=== PATIENT | female | born 1980 | race Caucasian/White ===

== ENCOUNTER 2018-12-01 17:53 | Emergency (ER) | payer OTHER ==
--- NOTE | 2018-12-01 18:51 | ER Document Report ---
ED Medical Screen (RME) - General Chief Complaint: Abdominal Pain Stated Complaint: ABDOMINAL PAIN Time Seen by Provider: 12/01/18 18:41 Notes: 38-year-old female patient reports onset earlier this morning of lower abdominal pain with some bright red blood mucousy discharge. There is some nausea with this. She felt dizzy when she went to bed last night and continues to feel that way. She has similar episode 2 years ago and was seen in the emergency room without a definitive cause found. She reports the symptoms lasted for 2-3 days and then spontaneously resolved. I have greeted and performed a rapid initial assessment of this patient. A comprehensive ED assessment and evaluation of the patient, analysis of test results and completion of the medical decision making process will be conducted by additional ED providers. - Related Data Allergies/Adverse Reactions: codeine Allergy (Verified 12/01/18 17:55) Physical Exam - Vital signs Vitals: Temp Pulse Resp BP Pulse Ox 98.9 F 83 18 154/90 H 96 12/01/18 18:02 12/01/18 18:02 12/01/18 18:02 12/01/18 18:02 12/01/18 18:02 Course - Vital Signs Vital signs: Temp Pulse Resp BP Pulse Ox 98.9 F 83 18 154/90 H 96 12/01/18 18:02 12/01/18 18:02 12/01/18 18:02 12/01/18 18:02 12/01/18 18:02
[2018-12-01 19:31] LABS: ABSOLUTE BASOPHILS # (AUTO) 0.1 10^3/uL (0.0-0.2); ABSOLUTE EOSINOPHILS # (AUTO) 0.1 10^3/uL (0.0-0.6); ABSOLUTE LYMPHOCYTES (AUTO) 2.6 10^3/uL (0.5-4.7); ABSOLUTE MONOCYTES (AUTO) 0.5 10^3/uL (0.1-1.4); ABSOLUTE NEUT (AUTO) 8.4 10^3/uL (1.7-8.2); BASOPHILS % (AUTO) 1.2 % (0-2); EOSINOPHILS % (AUTO) 0.8 % (0-6); HEMATOCRIT 36.9 % (36.0-47.0); HEMOGLOBIN 11.8 g/dL (12.0-15.5); MEAN CORPUSCULAR HEMOGLOBIN 26.1 pg (27.0-33.4); MEAN CORPUSCULAR VOLUME 82 fl (80-97); MONOCYTES % (AUTO) 4.3 % (3-13); PLATELET COUNT 315 10^3/uL (150-450); RED BLOOD COUNT 4.53 10^6/uL (3.72-5.28); RED CELL DISTRIBUTION WIDTH 15.4 % (11.5-14.0); SEGMENTED NEUTROPHILS % (AUTO) 71.7 % (42-78); TOTAL CELLS COUNTED % (AUTO) 100 %; WHITE BLOOD COUNT 11.7 10^3/uL (4.0-10.5)
[2018-12-01 19:43] LABS: ALANINE AMINOTRANSFERASE 29 U/L (9-52); ALBUMIN 4.3 g/dL (3.5-5.0); ALKALINE PHOSPHATASE 76 U/L (38-126); ANION GAP 6 (5-19); ASPARTATE AMINO TRANSFERASE 16 U/L (14-36); BILIRUBIN,DIRECT 0.1 mg/dL (0.0-0.4); BILIRUBIN,TOTAL 0.8 mg/dL (0.2-1.3); BLOOD UREA NITROGEN 9 mg/dL (7-20); CALCIUM 9.5 mg/dL (8.4-10.2); CARBON DIOXIDE 27 mmol/L (22-30); CHLORIDE 107 mmol/L (98-107); GLUCOSE 104 mg/dL (75-110); POTASSIUM 4.3 mmol/L (3.6-5.0); SODIUM 140.4 mmol/L (137-145)
[2018-12-01] MEDS ORDERED: NORMAL SALINE 1000 ML 1,000 ML IV ONE (22:00)
[2018-12-01] MEDS ORDERED: KETOROLAC TROMETHAMINE INJ/PF 30 MG/1 ML SDV IV ONE (22:00)
[2018-12-01] MEDS ORDERED: ONDANSETRON HCL INJ/PF 4 MG/2 ML SDV IV ONE (22:00)
--- NOTE | 2018-12-01 22:04 | ER Document Report ---
ED General - General Chief Complaint: Abdominal Pain Stated Complaint: ABDOMINAL PAIN Time Seen by Provider: 12/01/18 18:41 Primary Care Provider: EUSEBIO HUDDLESTON MD [ACTIVE STAFF] - Follow up in 3-5 days Mode of Arrival: Ambulatory Information source: Patient, [facility] Records Notes: 38-year-old female with hypertension, PCOS presents with complaint of lower abdominal pain that started at 4 AM. Pain is described as cramping and associated with multiple episodes of diarrhea. Patient reports that after her fourth episode of voluminous diarrhea she had some mucousy bright red blood. Patient has had associated nausea without vomiting. She denies any fever, chills, chest pain, shortness of breath. Patient had had prior similar symptoms approximately 2 years ago which did not result in a diagnosis. - HPI Onset: This morning Onset/Duration: Gradual, Persistent Quality of pain: Cramping Severity: Mild Associated symptoms: Diarrhea, Nausea. denies: Chest pain, Fever, Vomiting, Shortness of breath, Weakness Exacerbated by: Denies Relieved by: Denies Similar symptoms previously: Yes Recently seen / treated by doctor: No - Related Data Allergies/Adverse Reactions: codeine Allergy (Verified 12/01/18 17:55) Past Medical History - General Information source: Patient, [facility] Records - Social History Smoking Status: Former Smoker Chew tobacco use (# tins/day): No Frequency of alcohol use: Rare Drug Abuse: None Lives with: Family Family History: Reviewed & Not Pertinent Patient has suicidal ideation: No Patient has homicidal ideation: No - Past Medical History Cardiac Medical History: Reports: Hx Hypertension Renal/ Medical History: Reports: Other - PCOS. Denies: Hx Peritoneal Dialysis Musculoskeletal Medical History: Reports Hx Arthritis - RA Past Surgical History: Reports: Hx Abdominal Surgery - muscle repair, Hx Appendectomy, Hx Thyroid Surgery Review of Systems - Review of Systems Notes: REVIEW OF SYSTEMS: CONSTITUTIONAL : Denies fever, chills, or sweats. Denies recent illness. Denies weight loss, recent hospitalizations. EENT: Denies visual changes, eye pain. Denies sore throat, oral lesions, difficulty swallowing. CARDIOVASCULAR: Denies chest pain. Denies palpitations. Denies lower extremity edema. RESPIRATORY: Denies cough. Denies shortness of breath, wheezing. GASTROINTESTINAL: Denies abdominal distention. Denies vomiting, Denies blood in vomitus. Denies black, tarry stools. Denies constipation. GENITOURINARY: Denies difficulty urinating, painful urination, frequency, blood in urine, or vaginal discharge. MUSCULOSKELETAL: Denies back or neck pain or stiffness. Denies joint pain or swelling. SKIN: Denies rash, lesions or sores. HEMATOLOGIC : Denies easy bruising or bleeding. LYMPHATIC: Denies swollen glands. NEUROLOGICAL: Denies confusion or altered mental status. Denies loss of consciousness. Denies headache. Denies weakness or paralysis. Denies problems difficulty with ambulation, slurred speech. Denies sensory loss, numbness, or tingling. Denies seizures. PSYCHIATRIC: Denies anxiety or stress. Denies depression, suicidal ideation, or homicidal ideation. Denies visual or auditory hallucinations. Physical Exam - Vital signs Vitals: Temp Pulse Resp BP Pulse Ox 98.9 F 83 18 154/90 H 96 12/01/18 18:02 12/01/18 18:02 12/01/18 18:02 12/01/18 18:02 12/01/18 18:02 - Notes Notes: PHYSICAL EXAMINATION: GENERAL: Well-appearing, well-nourished and in no acute distress. HEAD: Atraumatic, normocephalic. EYES: Pupils equal round and reactive to light, extraocular movements intact, conjunctiva are normal. ENT: Nares patent, oropharynx clear without exudates. Moist mucous membranes. NECK: Normal range of motion, supple without lymphadenopathy LUNGS: Breath sounds clear to auscultation bilaterally and equal. No wheezes rales or rhonchi. HEART: Regular rate and rhythm without murmurs ABDOMEN: Soft, nontender, nondistended abdomen. No guarding, no rebound. No masses appreciated. Female : Rectal exam performed and has brown stool which is Hemoccult positive. Active bleeding, no external hemorrhoids. Musculoskeletal: Normal range of motion, no pitting or edema. No cyanosis. NEUROLOGICAL: Cranial nerves grossly intact. Normal speech, normal gait. Normal sensory, motor exams PSYCH: Normal mood, normal affect. SKIN: Warm, Dry, normal turgor, no rashes or lesions noted. Course - Re-evaluation Re-evalutation: Laboratory 12/01/18 12/01/18 12/01/18 19:22 19:22 19:22 WBC 11.7 H RBC 4.53 Hgb 11.8 L Hct 36.9 MCV 82 MCH 26.1 L MCHC 32.0 RDW 15.4 H Plt Count 315 Seg Neutrophils % 71.7 Lymphocytes % 22.0 Monocytes % 4.3 Eosinophils % 0.8 Basophils % 1.2 Absolute Neutrophils 8.4 H Absolute Lymphocytes 2.6 Absolute Monocytes 0.5 Absolute Eosinophils 0.1 Absolute Basophils 0.1 Sodium 140.4 Potassium 4.3 Chloride 107 Carbon Dioxide 27 Anion Gap 6 BUN 9 Creatinine 0.80 Est GFR ( Amer) > 60 Est GFR (Non-Af Amer) > 60 Glucose 104 Calcium 9.5 Total Bilirubin 0.8 Direct Bilirubin 0.1 Neonat Total Bilirubin Not Reportable Neonat Direct Bilirubin Not Reportable Neonat Indirect Bili Not Reportable AST 16 ALT 29 Alkaline Phosphatase 76 Total Protein 7.0 Albumin 4.3 Serum HCG, Qual NEGATIVE Urine Color Urine Appearance Urine pH Ur Specific Transfer Urine Protein Urine Glucose (UA) Urine Ketones Urine Blood Urine Nitrite Urine Bilirubin Urine Urobilinogen Ur Leukocyte Esterase Urine WBC (Auto) Urine RBC (Auto) Urine Bacteria (Auto) Squamous Epi Cells Auto Urine Mucus (Auto) Urine Ascorbic Acid POC Stool Occult Blood 12/01/18 12/01/18 21:41 23:52 WBC RBC Hgb Hct MCV MCH MCHC RDW Plt Count Seg Neutrophils % Lymphocytes % Monocytes % Eosinophils % Basophils % Absolute Neutrophils Absolute Lymphocytes Absolute Monocytes Absolute Eosinophils Absolute Basophils Sodium Potassium Chloride Carbon Dioxide Anion Gap BUN Creatinine Est GFR ( Amer) Est GFR (Non-Af Amer) Glucose Calcium Total Bilirubin Direct Bilirubin Neonat Total Bilirubin Neonat Direct Bilirubin Neonat Indirect Bili AST ALT Alkaline Phosphatase Total Protein Albumin Serum HCG, Qual Urine Color YELLOW Urine Appearance SLIGHTLY-CLOUDY Urine pH 6.0 Ur Specific Transfer > 1.060 Urine Protein NEGATIVE Urine Glucose (UA) NEGATIVE Urine Ketones 20 H Urine Blood SMALL H Urine Nitrite NEGATIVE Urine Bilirubin NEGATIVE Urine Urobilinogen NEGATIVE Ur Leukocyte Esterase TRACE H Urine WBC (Auto) 8 Urine RBC (Auto) 7 Urine Bacteria (Auto) TRACE Squamous Epi Cells Auto 14 Urine Mucus (Auto) FEW Urine Ascorbic Acid NEGATIVE POC Stool Occult Blood POSITIVE Abdomen/Pelvis CT 12/01/18 21:47 IMPRESSION: Negative for acute intra-abdominal/pelvic process. Incidental findings as above TECHNICAL DOCUMENTATION: Quality ID # 436: Final reports with documentation of one or more dose reduction techniques (e.g., Automated exposure control, adjustment of the mA and/or kV according to patient size, use of iterative reconstruction technique) copyright 2011 [employer]- All Rights Reserved Temp Pulse Resp BP Pulse Ox 98.2 F 61 15 111/80 98 12/02/18 01:46 12/02/18 01:46 12/02/18 01:46 12/02/18 01:46 12/02/18 01:46 12/02/18 18:18 38-year-old female presents with lower abdominal diarrhea with bright red blood. Vital signs reviewed and within normal limits upon arrival. Patient is not tachycardic or hypotensive. She is well-appearing. She does not appear toxic, dehydrated she is in no acute distress or in distress. Previous medical records and nursing. CBC shows stable hemoglobin, CMP unremarkable, urinalysis within normal limits. Patient did test positive for occult blood but had brown stool on exam without active bleeding. Patient is well-appearing. She received IV fluids, Toradol, Zofran. On my reevaluation she is sleeping peacefully. I did discuss results of her CAT scan which were normal, without evidence of pancreatitis, cholecystitis, bowel obstruction, diverticulitis, perforation, free fluid. Patient does admit that she had improvement of pain with Toradol. Likely patient's bleeding is due to irritation secondary to diarrhea. Patient was prescribed Bentyl, Zofran and advised to use Imodium as needed. Patient was evaluated and treated as appropriate for the patient's presenting symptoms and complaint, with consideration of any critical or life threatening conditions that may be associated with their obtained history and exam as noted above. All results were discussed with patient. Patient provided the opportunity to ask questions, and express concerns. Patient was educated on treatments based on their presumed diagnosis as noted above. At this time we will discharge the patient with return precautions and follow-up recommendations. Verbal discharge instructions given a the bedside. Medication warnings reviewed. Patient is in agreement with this plan and has verbalized understanding of return precautions. After careful consideration I feel that that patient can be safely discharged from the emergency department, they were advised to followup with a primary care physician in 2-3 days. Dictation on this chart was performed using voice recognition software and may result in unintended grammatical, spelling, syntax or errors. 12/02/18 18:20 - Vital Signs Vital signs: Temp Pulse Resp BP Pulse Ox 98.2 F 61 15 111/80 98 12/02/18 01:46 12/02/18 01:46 12/02/18 01:46 12/02/18 01:46 12/02/18 01:46 - Laboratory Result Diagrams: 12/01/18 19:22 12/01/18 19:22 Laboratory results interpreted by me: 12/01/18 12/01/18 19:22 23:52 WBC 11.7 H Hgb 11.8 L MCH 26.1 L RDW 15.4 H Absolute Neutrophils 8.4 H Urine Ketones 20 H Urine Blood SMALL H Ur Leukocyte Esterase TRACE H - Diagnostic Test Radiology reviewed: Image reviewed, Reports reviewed Discharge - Discharge Clinical Impression: Bright red blood per rectum, Nausea Abdominal pain Qualifiers: Abdominal location: unspecified location Qualified Code(s): R10.9 - Unspecified abdominal pain Diarrhea Qualifiers: Diarrhea type: unspecified type Qualified Code(s): R19.7 - Diarrhea, unspecified Hypertension Qualifiers: Hypertension type: unspecified Qualified Code(s): I10 - Essential (primary) hypertension Condition: Good Disposition: HOME, SELF-CARE Instructions: Abdominal Pain ([facility]), Diarrhea, Nonspecific ([facility]), Nausea or Vomiting, Nonspecific ([facility]), Rectal Bleeding, Unclear Cause ([facility]) Forms: Elevated Blood Pressure, Return to Work Referrals: EUSEBIO HUDDLESTON MD [ACTIVE STAFF] - Follow up in 3-5 days
--- NOTE | 2018-12-01 23:39 | RADIOLOGY REPORT (SQ) ---
EXAM DESCRIPTION: CT ABDOMEN PELVIS WITH IV CONTRAST COMPLETED DATE/TME: 12/01/2018 21:47 CLINICAL HISTORY: 38 years, Female, abd pain COMPARISON: None. TECHNIQUE: [id number] Images stored on PACS. All CT scanners at this facility use dose modulation, iterative reconstruction, and/or weight based dosing when appropriate to reduce radiation dose to as low as reasonably achievable (ALARA). [facility]: Dose Right [facility]: CareDose [facility]: Dose Right [facility]: Teradose 4D [facility]: [employer] LIMITATIONS: None. FINDINGS: Limited evaluation of the lung bases is unremarkable. Osseous structures are grossly intact. Fatty infiltrative change to the liver. The spleen, adrenal glands, pancreas are unremarkable. Bilateral renal cortical scar formation. 5 mm partially exophytic left renal cyst. The kidneys are otherwise unremarkable. No gross evidence for bowel obstruction. No free air or free fluid. Presumed surgical absence of the appendix. IMPRESSION: Negative for acute intra-abdominal/pelvic process. Incidental findings as above TECHNICAL DOCUMENTATION: Quality ID # 436: Final reports with documentation of one or more dose reduction techniques (e.g., Automated exposure control, adjustment of the mA and/or kV according to patient size, use of iterative reconstruction technique) copyright 2010 [employer] [facility] [employer]- All Rights Reserved
[2018-12-02 00:08] LABS: APPEARANCE,URINE SLIGHTLY-CLOUDY; BILIRUBIN,URINE NEGATIVE (NEGATIVE); COLOR,URINE YELLOW; GLUCOSE, URINE NEGATIVE (NEGATIVE); KETONES,URINE 20 mg/dL (NEGATIVE); LEUKOCYTE ESTERASE,URINE TRACE (NEGATIVE); NITRITE,URINE NEGATIVE (NEGATIVE); PROTEIN,URINE NEGATIVE (NEGATIVE); UROBILINOGEN,URINE NEGATIVE mg/dL (<2.0)
[2018-12-02 00:09] LABS: URINE SPECIFIC GRAVITY > 1.060
[2018-12-02] MEDS ORDERED: LOPERAMIDE HCL 2 MG CAPSULE PO ONE (00:39)
[2018-12-02] MEDS ORDERED: ONDANSETRON ODT 4 MG TAB (6 TAB/ER DISP) PO PRN (00:41)
[2018-12-02 01:46] VITALS: BP 111/80
== END 2018-12-02 01:47 | disposition home or self-care (01) ==
LOC: ER 17:53
DX: K62.5 Hemorrhage of anus and rectum (principal); R10.30 Lower abdominal pain, unspecified; R19.7 Diarrhea, unspecified; R11.0 Nausea; E28.2 Polycystic ovarian syndrome; I10 Essential (primary) hypertension; Z88.6 Allergy status to analgesic agent
CPT/HCPCS: 99284; 96361; 96374; 96375; 36415; 84703; 85025; 80053; 81001; 74177; J1885; J2405; J7030